=== PATIENT | female | born 1940 | race Caucasian/White ===

== ENCOUNTER 2019-10-26 08:13 | Inpatient (IN) | payer OTHER, SELFPAY ==
[2019-10-26] VITALS (26 sets, daily range): BP systolic 115–138; BP diastolic 47–86; PULSE 72–90; RESP 16–20; TEMP 36.3–37.1; O2SAT 99–100; BMI 33.1
[2019-10-26 08:44] LABS: Basophils Percent Auto 0.7 % (0.2-1.2); Eosinophils Absolute Auto 0.2 K/mm3 (0-0.3); Immature Granulocyte Absolute 0.03 K/mm3 (0.00-0.031); Immature Granulocyte Percent A 0.6 % (0-0.5); Lymphocytes Absolute Auto 0.65 K/mm3 (0.9-3.2); Mean Corpuscular HGB Conc 26.3 g/dl (32-36); Mean Corpuscular Hemoglobin 19.3 pg (26-34); Mean Corpuscular Volume 73.3 fl (80-100); Mean Platelet Volume 10.9 fl (7.4-10.4); Monocytes Absolute Auto 0.5 K/mm3 (0.1-0.6); Monocytes Percent Auto 9.2 % (2.6-8.5); Neutrophils Percent Auto 74.5 % (45.5-73.1); Platelet Count Result 260 k/mm3 (150-375); Red Cell Distribution Width 17.4 % (11.5-14.5); White Blood Count 5.4 K/mm3 (4.5-10.0)
[2019-10-26 08:53] LABS: Hematocrit 19.8 % (37.0-47.0); Hemoglobin 5.2 g/dL (12.0-15.0)
[2019-10-26 08:57] LABS: Blood Urea Nitrogen 23 mg/dL (7-17); Calcium 8.8 mg/dL (8.4-10.2); Carbon Dioxide 28 mmol/L (22-30); Chloride 99 mmol/L (98-107); Estimated CRCL calculation 42 ml/min; Estimated Glomerular Filt Rate 48; Glucose 119 mg/dL (65-105); INR 1.5; Potassium 3.1 mmol/L (3.4-5.0); Prothrombin Time 17.9 Seconds (11.1-14.7); Sodium 135 mmol/L (137-145)
[2019-10-26 08:58] LABS: Partial Thromboplastin Time 35.1 SECONDS (22.3-36.8)
[2019-10-26] MEDS: PANTOPRAZOLE SODIUM IV 40 MG VIAL IV PUSH ×2 (09:25→20:38)
--- NOTE | 2019-10-26 09:45 | ED.RECABL ---
HPI - Recheck/Abnormal Lab/Rx General Chief Complaint: Recheck/Abnormal Lab/Rx Stated Complaint: Needs Blood Transfusion Time Seen by Provider: 10/26/19 08:25 History of Present Illness HPI narrative: Patient is a 79-year-old female who presents the ER with abnormal lab work. Reports outpatient hemoglobin level from yesterday was 4.9 and her doctor wanted her to come to the ER. She reports she has been feeling fatigued and weak more progressively over the last couple months. This patient went to the doctor be evaluated. 1 year ago she had a valve replacement and was placed on Eliquis for A. fib. She has been doing well since then. She reports her stools are slightly off color but not dark black. She has had no diarrhea. No chest pain/syncope. Related Data Home Medications Medication Instructions Recorded Confirmed apixaban [Eliquis] 5 mg PO BID 02/20/19 02/20/19 aspirin 81 mg PO DAILY 02/20/19 02/20/19 calcium polycarbophil 625 mg PO DAILY 02/20/19 02/20/19 cholecalciferol (vitamin D3) 2,000 unit PO DAILY 02/20/19 02/20/19 furosemide 60 mg PO DAILY 02/20/19 02/20/19 levothyroxine 112 mcg PO DAILY 02/20/19 02/20/19 omega 2-bdm-ira-fish oil [[place]-3] 1,200 cap PO DAILY 02/20/19 02/20/19 spironolactone 25 mg PO DAILY 02/20/19 02/20/19 Allergies Allergy/AdvReac Type Severity Reaction Status Date / Time Kfxvqsf-Ibu-Qst Reductase Allergy Intermediate Muscle Pain Verified 10/26/19 08:40 Inhibitor Review of Systems Review of Systems: All systems reviewed & are unremarkable except as noted in HPI and below Constitutional: Constitutional: Denies chills, Reports fatigue, Denies fever(s) and Reports weakness ENT: Denies nasal congestion and Denies sore throat Cardiovascular: Cardiovascular: Denies chest pain, Denies rapid heart rate and Denies radiating jaw, neck or arm pain Respiratory: Respiratory: Denies cough, Reports dyspnea and Denies wheezing Gastrointestinal: Gastrointestinal: Denies abdominal pain, Reports heartburn, Denies diarrhea, Denies nausea and Denies vomiting Neurologic: Denies syncope, Denies focal weakness and Denies numbness PMF Past Medical History Medical History (Updated 10/26/19 @ 09:56 by Hermes Adair MD) Atrial fibrillation Surgical History Surgical History (Updated 10/26/19 @ 09:47 by Hermes Adair MD) Aortic valve replaced Social History Social History (Updated 10/26/19 @ 09:47 by Hermes Adair MD) Smoking status: Never smoker Gender identity (if verbalized by the patient): Female Exam Narrative: Exam Narrative: GENERAL: Well-appearing, well-nourished, and in no acute distress. HEAD: Normocephalic, atraumatic. Eyes: Nadeem, EOMI, pale conjunctiva. CHEST: Clear to auscultation. No respiratory distress. HEART: Regular rate and rhythm. Murmur heard throughout. Normal peripheral pulses. ABDOMEN: Soft, nontender, nondistended, heme positive stool on RONIT without gross blood. EXTREMITIES: Normal range of motion. No edema. SKIN: Warm, dry, no rash. NEURO: Alert and oriented x3. Course Course Emergency Course: Admit to hospitalist, blood to be transfused, will have GI consulted. Clear liquid diet. Vital Signs Vital signs: Vital Signs Temperature 97.4 F L 10/26/19 08:29 Pulse Rate 90 10/26/19 08:29 Respiratory Rate 18 10/26/19 08:29 Blood Pressure 124/86 10/26/19 08:29 Pulse Oximetry 99 10/26/19 08:29 Temperature 97.4 F L 10/26/19 08:29 Pulse Rate 90 10/26/19 08:29 Respiratory Rate 18 10/26/19 08:29 Blood Pressure 124/86 10/26/19 08:29 Pulse Oximetry 99 10/26/19 08:29 MDM - Recheck/Abnormal Lab/Rx Lab Data Result diagrams: 10/26/19 08:34 10/26/19 08:34 Labs: Lab Results 10/26/19 10/26/19 10/26/19 Range/Units 08:34 08:34 08:34 WBC 5.4 (4.5-10.0) K/mm3 RBC 2.70 L (4.2-5.4) M/mm3 Hgb 5.2 L* (12.0-15.0) g/dL Hct 19.8 L* (37.0-47.0) % MCV 73.3 L (80-
[2019-10-26] MEDS: TUBING, BLOOD PLUM PUMP TUBING 1 EACH XX ×2 (10:40→20:38)
--- NOTE | 2019-10-26 11:15 | PC.NURSE ---
This patient, Deysi Keith, was admitted to Medical Room 349-01. Patient/family oriented to hospital policies and general routines including ID bracelet, bed and alarms, visiting hours, pain management, procedures, bathroom and other care routines, personal items, smoking policy, room service/diet, and visiting hours. Valuables list has been completed. Information on how to activate the Rapid Response Team has been discussed. Patient/Family are encouraged to report perceived risks to care and to ask questions if they do not understand what they are told or what they should do.
--- NOTE | 2019-10-26 13:45 | PM.IMHP ---
H&P: HPI History of Present Illness Chief complaint: ?I need a blood transfusion.? Narrative: Deysi Keith is a 79-year-old female with paroxysmal atrial fibrillation on Eliquis, hypothyroidism, hypertension, and valvular heart disease status post bioprosthetic tissue aortic valve replacement with mitral valve repair who presented to the emergency department earlier today with the stated chief complaint of ?I need a blood transfusion.? She reports progressive weakness and fatigue over the last several months and more recently has been getting short of breath with just walking about. She saw her primary care provider yesterday for evaluation, and received a call today that she needed to come to the emergency department as her hemoglobin level was 4.9. With further questioning she does mention that her stools have been a bit darker over the past couple of month, but she has not noted overt blood or black stools. She also reports occasional belching, rare heartburn, and intermittent constipation. She denies nausea, vomiting, hematemesis, and hematochezia. She has no history of peptic ulcers. Review of Systems Review of Systems: Narrative: Twelve systems were reviewed with pertinent positives and negatives as per HPI. No fever, chills, or sweats. She denies recent travel. No sick contacts. No cough, cold or flu symptoms. She had 1 episode of epistaxis a couple of weeks ago but was not significant. No hematuria. No vaginal bleeding. Except as documented, all other systems were reviewed and are negative. [facility] Past Medical History Medical History (Updated 10/26/19 @ 19:02 by Ivone Herr PA-C) Colon polyps Current use of terminal gauger supervisor anticoagulation Essential hypertension Hypothyroidism Paroxysmal atrial fibrillation It sounds is this developed post valve replacement and repair. 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 Status post aortic valve replacement with tissue valve (~09/2018) Family History Family History Mother Anemia Father Congestive heart failure Sibling Hypertension Social History Social History (Updated 10/26/19 @ 13:32 by Ivone Herr PA-C) Social History: Surrogate decision maker: Christopher Keith, . Code status: Full code. Smoking status: Former smoker Alcohol intake: never Substance use: never Substance use type: does not use Additional living arrangements comments: Lives in [place] with her spouse. Gender identity (if verbalized by the patient): Female Spiritual care concerns: No Meds Home Medications and Allergies Home Medications Medication Instructions Recorded Confirmed Type apixaban [Eliquis] 5 mg PO BID 02/20/19 10/26/19 History aspirin 81 mg PO DAILY 02/20/19 10/26/19 History calcium polycarbophil 625 mg PO DAILY 02/20/19 10/26/19 History cholecalciferol (vitamin D3) 2,000 unit PO DAILY 02/20/19 10/26/19 History furosemide 40 mg PO QAM 02/20/19 10/26/19 History levothyroxine 112 mcg PO DAILY 02/20/19 10/26/19 History omega 7-cco-thv-fish oil [[place]-3] 1,200 cap PO DAILY 02/20/19 10/26/19 History spironolactone 25 mg PO DAILY 02/20/19 10/26/19 History Allergies Allergy/AdvReac Type Severity Reaction Status Date / Time Eszksch-Fyp-Jgb Reductase Allergy Intermediate Muscle Pain Verified 10/26/19 08:40 Inhibitor Vital Signs Vital Signs - 24 hr 10/26/19 08:29 10/26/19 10:15 10/26/19 10:32 Temperature 97.4 F L 98.2 F 98.4 F Pulse Rate 90 74 76 Respiratory Rate 18 16 18 Blood Pressure 124/86 1
[2019-10-26 15:21] LABS: Thyroid Stimulating Hormone Reflex 0.477 uIU/mL (0.465-4.68)
--- NOTE | 2019-10-26 18:38 | PC.NURSE ---
Not able to obtain fax number for medical records at primary physician office. Ivone Moon notified and will try to obtain it on monday.
[2019-10-26 19:23] LABS: Hemoglobin 6.5 g/dL (12.0-15.0)
[2019-10-26 19:31] LABS: Alanine Aminotransferase 12 U/L (4-35); Albumin Level 3.7 g/dL (3.5-5.1); Alkaline Phosphatase 99 U/L (38-126); Aspartate Amino Transferase 17 U/L (14-36); Blood Urea Nitrogen 21 mg/dL (7-17); Calcium 8.6 mg/dL (8.4-10.2); Carbon Dioxide 30 mmol/L (22-30); Chloride 100 mmol/L (98-107); Estimated CRCL calculation 45 ml/min; Estimated Glomerular Filt Rate 54; Glucose 102 mg/dL (65-105); Potassium 3.5 mmol/L (3.4-5.0); Sodium 136 mmol/L (137-145)
[2019-10-26] MEDS: SODIUM CHLORIDE 0.9% IV 250 ML 30 ML IV CONT (20:32)
[2019-10-26] MEDS: FUROSEMIDE INJ 40 MG/4 ML VIAL 20 MG IV PUSH (20:35)
[2019-10-26 22:35] LABS: Glucose Point of Care 100 (65-105)
[2019-10-27] VITALS (9 sets, daily range): BP systolic 128–139; BP diastolic 42–59; PULSE 73–85; RESP 16–18; TEMP 36.7–37.3; O2SAT 99–100
[2019-10-27 01:54] LABS: Hematocrit 25.9 % (37.0-47.0); Hemoglobin 7.6 g/dL (12.0-15.0)
[2019-10-27 05:51] LABS: Basophils Percent Auto 0.6 % (0.2-1.2); Eosinophils Absolute Auto 0.2 K/mm3 (0-0.3); Eosinophils Percent Auto 3.7 % (0-4.4); Hematocrit 25.1 % (37.0-47.0); Hemoglobin 7.3 g/dL (12.0-15.0); Immature Granulocyte Absolute 0.02 K/mm3 (0.00-0.031); Immature Granulocyte Percent A 0.3 % (0-0.5); Lymphocytes Absolute Auto 0.82 K/mm3 (0.9-3.2); Mean Corpuscular HGB Conc 29.1 g/dl (32-36); Mean Corpuscular Hemoglobin 21.9 pg (26-34); Mean Corpuscular Volume 75.4 fl (80-100); Monocytes Absolute Auto 0.6 K/mm3 (0.1-0.6); Monocytes Percent Auto 8.7 % (2.6-8.5); Neutrophils Absolute Auto 4.6 K/mm3 (1.3-6.7); Neutrophils Percent Auto 73.7 % (45.5-73.1); Platelet Count Result 210 k/mm3 (150-375); Red Blood Count 3.33 M/mm3 (4.2-5.4); Red Cell Distribution Width 18.6 % (11.5-14.5); White Blood Count 6.3 K/mm3 (4.5-10.0)
[2019-10-27 06:02] LABS: INR 1.4; Prothrombin Time 16.4 Seconds (11.1-14.7)
[2019-10-27 06:03] LABS: Partial Thromboplastin Time 34.3 SECONDS (22.3-36.8)
[2019-10-27 06:06] LABS: Alanine Aminotransferase 11 U/L (4-35); Albumin Level 3.5 g/dL (3.5-5.1); Alkaline Phosphatase 94 U/L (38-126); Aspartate Amino Transferase 14 U/L (14-36); Bilirubin,Total 1.2 mg/dL (0.2-1.3); Blood Urea Nitrogen 17 mg/dL (7-17); Calcium 8.5 mg/dL (8.4-10.2); Carbon Dioxide 28 mmol/L (22-30); Chloride 100 mmol/L (98-107); Estimated CRCL calculation 43 ml/min; Estimated Glomerular Filt Rate 48; Glucose 103 mg/dL (65-105); Magnesium 2.1 mg/dL (1.6-2.3); Phosphorus 3.4 mg/dL (2.5-4.5); Potassium 3.3 mmol/L (3.4-5.0); Sodium 134 mmol/L (137-145)
[2019-10-27 07:15] LABS: Anisocytosis 1+ (NORMAL); Hypochromasia 1+ (NORMAL); Ovalocytes 1+ (NORMAL); Platelet Estimate Adequate (Adequate)
[2019-10-27] MEDS: FUROSEMIDE 40 MG TABLET PO (08:59)
[2019-10-27] MEDS: SPIRONOLACTONE 25 MG TABLET PO (08:59)
[2019-10-27] MEDS: PANTOPRAZOLE SODIUM IV 40 MG VIAL IV PUSH ×2 (08:59→20:21)
[2019-10-27] MEDS: calcium polycarbophiL 625 MG TABLET PO (08:59)
[2019-10-27] MEDS: CHOLECALCIFEROL 1,000 UNIT TABLET 2000 UNITS PO (08:59)
[2019-10-27] MEDS: LEVOTHYROXINE SODIUM 112 MCG TABLET PO (08:59)
[2019-10-27 12:43] LABS: Hematocrit 27.3 % (37.0-47.0); Hemoglobin 7.9 g/dL (12.0-15.0)
--- NOTE | 2019-10-27 13:15 | WPDGICN ---
Assessment and Plan Assessment and plan (1) Profound anemia: Code(s): D64.9 - Anemia, unspecified Status: Acute Assessment and Plan: microcytic anemia in setting of eliquis use she is getting blood transfusion will proceed with egd and colonoscopy to assess source of blood loss keep holding blood thinner and monitor hb (2) Occult GI bleeding: Code(s): R19.5 - Other fecal abnormalities Status: Acute Assessment and Plan: will also get records from recent colonoscopy (3) Current use of half-way anticoagulation: Code(s): Z79.01 - group home (current) use of anticoagulants Status: Acute Assessment and Plan: on hold (4) Paroxysmal atrial fibrillation: Code(s): I48.0 - Paroxysmal atrial fibrillation Status: Acute (5) Essential hypertension: Code(s): I10 - Essential (primary) hypertension Status: Acute GI Consult Note Consult date/time: 10/27/19 13:15 Reason for consult: symptomatic anemia HPI: Deysi Keith is a 79 year old female with paroxysmal atrial fibrillation on Eliquis for almost a year after she underwent heart surgery with bioprosthetic tissue aortic valve replacement with mitral valve repair. She also has history of polyps with colonoscopy 2017, then apparently followed by proctoscopy because polyp . She is here with progressive shortness of breath for 2-3 months but lately even more fatigue and getting easily tired. She was her pcp who check Hb 4.9, she was called with results and admitted to the hospital for further evaluation. Noted slightly dark stools for few weeks but no obvious blood. She never had EGD, denies reflux symptoms or abdominal pain. Review of Systems Constitutional: Constitutional: Reports fatigue, Denies headache(s) and Reports lethargy Eyes: Eyes: Denies blurry vision ENT: Reports Normal hearing present, Denies headache(s) and Denies neck pain Cardiovascular: Cardiovascular: Reports dyspnea and Reports dyspnea on exertion Respiratory: Respiratory: Reports dyspnea on exertion Gastrointestinal: Gastrointestinal: Reports no additional gastrointestinal complaints Genitourinary: Genitourinary: Denies dysuria Musculoskeletal: Musculoskeletal: Denies neck pain Integumentary/Breasts: Skin/Breast: Denies dry skin Neurologic: Reports Normal hearing present, Denies headache(s) and Denies weakness Psychiatric: Psychiatric: Denies anxiety Endocrine: Endocrine: Denies change in body appearance Hematologic/Lymphatic: Hematologic/Lymphatic: Denies lymphadenopathy Allergic/Immunologic: Allergic/Immunologic: Denies urticaria PMF Past Medical History Medical History (Updated 10/26/19 @ 19:02 by Ivone Herr PA-C) Colon polyps Current use of oil heaterman anticoagulation Essential hypertension Hypothyroidism Paroxysmal atrial fibrillation It sounds is this developed post valve replacement and repair. 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 Status post aortic valve replacement with tissue valve (~09/2018) Family History Family History Mother Anemia Father Congestive heart failure Sibling Hypertension Social History Social History (Updated 10/26/19 @ 13:32 by Ivone Herr PA-C) Social History: Surrogate decision maker: Christopher Keith, . Code status: Full code. Smoking status: Former smoker Alcohol intake: never Substance use: never Substance use type: does not use Additional living arrangements comments: Lives in [facility]
--- NOTE | 2019-10-27 14:07 | PM.IMPN ---
Progress Note: A&P Assessment and Plan (1) Profound anemia: Code(s): D64.9 - Anemia, unspecified Status: Acute Assessment and Plan: Presumed to be secondary to occult GI bleed. Hemoglobin 5.2 at presentation. She received 3 units pRBC. H&H is stable now. Continue to monitor H&H q.6h. Transfuse as needed with hemoglobin threshold <7.0 Eliquis has been held. (2) Occult GI bleeding: Code(s): R19.5 - Other fecal abnormalities Status: Acute Assessment and Plan: Stool Hemoccult positive in ED. She notes frequent dark, tarry stools. Dr. Denson has been consulted and his input is appreciated. Continue Protonix given vague GI complaints. Plan for EGD and colonoscopy tomorrow. (3) Paroxysmal atrial fibrillation: Code(s): I48.0 - Paroxysmal atrial fibrillation Status: Acute Assessment and Plan: Rate is controlled at this time. She is currently in sinus rhythm. Apixaban on hold given profound anemia and occult bleeding. Continue to monitor on telemetry (4) Current use of intermission coordinator anticoagulation: Code(s): Z79.01 - adjunct faculty for medical terminology (current) use of anticoagulants Status: Acute Assessment and Plan: As above, apixaban is on hold currently. (5) Hypothyroidism: Code(s): E03.9 - Hypothyroidism, unspecified Status: Acute Assessment and Plan: TSH is within normal limits. Continue levothyroxine (6) Essential hypertension: Code(s): I10 - Essential (primary) hypertension Status: Acute Assessment and Plan: Blood pressures were reviewed and they are well controlled on the low end of normal. Continue antihypertensives and monitor daily. (7) Elevated serum creatinine: Code(s): R79.89 - Other specified abnormal findings of blood chemistry Status: Acute Assessment and Plan: No known history of kidney disease. May be due to hypoperfusion stemming from her profound anemia. Continue to monitor closely. Will call primary tomorrow to establish baseline creatinine. (8) Hypokalemia: Code(s): E87.6 - Hypokalemia Status: Acute Assessment and Plan: She has very mild hypokalemia and is asymptomatic. She is on both furosemide and spironolactone. Magnesium is within normal limits. I am hesitant to give potassium supplement given spironolactone therapy. Will monitor potassium closely for now. Subjective Date/time seen: 10/27/19 14:07 Interval history: Date of service: 10/27/2019 She is doing well at this time. She feels that her shortness of breath has modestly improved, although she notes that she has not been ambulating much and she typically has ORTIZ. She denies any active bleeding or bruising. She has not had a bowel movement in 5 days. She did note that her bowel movements were often dark and tarry. She denies dizziness or lightheadedness. She does feel rather fatigued. She is not in any pain at this time. She denies cough, dysphagia, chest pain, palpitations, nausea, vomiting, fever, chills, abdominal pain, or diarrhea. She is a little bit nervous about having a colonoscopy tomorrow. Review of Systems Review of Systems: Narrative: A 12 point review of systems was reviewed with pertinent positives and negatives as per HPI. Exam Narrative: Exam Narrative: Ms. Keith is examined alone today. She is a well-nourished 79-year-old female who is lying supine in bed. She appears comfortable and is in no acute respiratory distress. HR 78, BP 132/52, RR 16, T 99.2?, 99% on room air Neuro: awake, alert and oriented x4, speech clear, no focal neuro deficits noted HEENMT: normocephalic, atraumatic, EOMI, conjunctival pallor, sclerae anicteric, moist oral mucosa Neck: supple, no lymphadenopathy Respiratory: clear to auscultation bilaterally, normal respiratory effort without accessory muscle use Cardio: regular rate, regular rhythm,
[2019-10-27] MEDS: PEG (High)/E-LYTE SOLN 4,000 ML BTL 4000 ML PO (16:18)
[2019-10-27] MEDS: BISACODYL 5 MG TABLET EC 20 MG PO (16:54)
[2019-10-27 18:33] LABS: Hematocrit 28.7 % (37.0-47.0); Hemoglobin 8.3 g/dL (12.0-15.0)
[2019-10-28] VITALS (15 sets, daily range): BP systolic 88–140; BP diastolic 45–60; PULSE 76–93; RESP 16–22; TEMP 36.2–36.9; O2SAT 99–100
[2019-10-28 01:24] LABS: Hematocrit 29.5 % (37.0-47.0); Hemoglobin 8.6 g/dL (12.0-15.0)
[2019-10-28] MEDS: LEVOTHYROXINE SODIUM 112 MCG TABLET PO (05:32)
[2019-10-28] MEDS: MAGNESIUM CITRATE 300 ML BTL PO (05:32)
[2019-10-28 05:45] LABS: Hematocrit 25.8 % (37.0-47.0); Hemoglobin 7.5 g/dL (12.0-15.0); Mean Corpuscular HGB Conc 29.1 g/dl (32-36); Mean Corpuscular Hemoglobin 21.8 pg (26-34); Mean Platelet Volume 10.2 fl (7.4-10.4); Platelet Count Result 226 k/mm3 (150-375); Red Blood Count 3.44 M/mm3 (4.2-5.4); Red Cell Distribution Width 18.9 % (11.5-14.5)
[2019-10-28 05:58] LABS: Blood Urea Nitrogen 14 mg/dL (7-17); Calcium 8.6 mg/dL (8.4-10.2); Carbon Dioxide 32 mmol/L (22-30); Chloride 98 mmol/L (98-107); Estimated CRCL calculation 47 ml/min; Estimated Glomerular Filt Rate 54; Glucose 99 mg/dL (65-105); Magnesium 2.1 mg/dL (1.6-2.3); Potassium 2.9 mmol/L (3.4-5.0); Sodium 136 mmol/L (137-145)
[2019-10-28] MEDS: PANTOPRAZOLE SODIUM IV 40 MG VIAL IV PUSH (08:44)
--- NOTE | 2019-10-28 12:05 | PC.NURSE ---
To GI Lab via [employer].
[2019-10-28] MEDS: LACTATED RINGERS 1,000 ML 150 ML IV CONT ×2 (12:35→16:01)
[2019-10-28] MEDS: GENTAMICIN 80MG/SOD CHL 50 ML 80 MG/50 ML BAG 100 MG IVPB (12:37)
[2019-10-28] MEDS: AMPICILLIN 2 GM/NS 100 ML 2 GM/100 ML BAG IVPB (13:15)
--- NOTE | 2019-10-28 13:23 | WPDANESEPPF ---
Anes - Initial Pre Proc Eval Procedure: Operation Date: 10/28/19 12:00 Proposed Procedures p Esophagogastroduodenoscopy & Colonoscopy - Larry Denson MD Date/Time: 10/28/19 13:23 Surgeon: Marcie Hinds PA-C Pre Op Diagnosis: ?I need a blood transfusion.? Patient Data Age: 79 Gender: F Height: 5 ft 5 in Weight: 94.8 kg Last Vital Signs Temp 98.2 F 10/28/19 12:18 Pulse 83 10/28/19 12:18 Resp 16 10/28/19 12:18 BP 133/57 L 10/28/19 12:18 Pulse Ox 100 10/28/19 12:18 Allergies Allergy/AdvReac Type Severity Reaction Status Date / Time Nnguzjg-Olz-Uzc Reductase Allergy Intermediate Muscle Pain Verified 10/28/19 12:16 Inhibitor Home Medications Medication Instructions Recorded Confirmed Type apixaban [Eliquis] 5 mg PO BID 02/20/19 10/26/19 History aspirin 81 mg PO DAILY 02/20/19 10/26/19 History calcium polycarbophil 625 mg PO DAILY 02/20/19 10/26/19 History cholecalciferol (vitamin D3) 2,000 unit PO DAILY 02/20/19 10/26/19 History furosemide 40 mg PO QAM 02/20/19 10/26/19 History levothyroxine 112 mcg PO DAILY 02/20/19 10/26/19 History omega 7-ijt-aat-fish oil [[place]-3] 1,200 cap PO DAILY 02/20/19 10/26/19 History spironolactone 25 mg PO DAILY 02/20/19 10/26/19 History Laboratory Tests 10/27/19 10/28/19 10/28/19 18:07 00:48 05:25 WBC 6.0 K/mm3 K/mm3 (4.5-10.0) RBC 3.44 M/mm3 L M/mm3 (4.2-5.4) Hgb 8.3 g/dL L g/dL 8.6 g/dL L g/dL 7.5 g/dL L g/dL (12.0-15.0) (12.0-15.0) (12.0-15.0) Hct 28.7 % L % 29.5 % L % 25.8 % L % (37.0-47.0) (37.0-47.0) (37.0-47.0) MCV 75.0 fl L fl (80-100) MCH 21.8 pg L pg (26-34) MCHC 29.1 g/dl L g/dl (32-36) RDW 18.9 % H % (11.5-14.5) Plt Count 226 k/mm3 k/mm3 (150-375) MPV 10.2 fl fl (7.4-10.4) Sodium Potassium Chloride Carbon Dioxide BUN Creatinine Estim Creat Clear Calc Estimated GFR Glucose Calcium Magnesium 10/28/19 05:25 WBC RBC Hgb Hct MCV MCH MCHC RDW Plt Count MPV Sodium 136 mmol/L L mmol/L (137-145) Potassium 2.9 mmol/L L mmol/L (3.4-5.0) Chloride 98 mmol/L mmol/L (98-107) Carbon Dioxide 32 mmol/L H mmol/L (22-30) BUN 14 mg/dL mg/dL (7-17) Creatinine 1.00 mg/dL mg/dL (0.7-1.0) Estim Creat Clear Calc 47 ml/min ml/min Estimated GFR 54 L (59 - ) Glucose 99 mg/dL mg/dL (65-105) Calcium 8.6 mg/dL mg/dL (8.4-10.2) Magnesium 2.1 mg/dL mg/dL (1.6-2.3) Patient hx anesthesia problems: none Family hx anesthesia problems: none [facility] Past Medical History Medical History (Updated 10/27/19 @ 16:01 by Marcie Hinds PA-C) Colon polyps Current use of longterm anticoagulation Essential hypertension Hypothyroidism Paroxysmal atrial fibrillation It sounds is this developed post valve replacement and repair. 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 Status post aortic valve replacement with tissue valve (~09/2018) Family History Family History Mother Anemia Father Congestive heart failure Sibling Hypertension Social History Social History (Updated 10/26/19 @ 13:32 by Ivone Herr PA-C) Social History: Surrogate decision maker: Christopher Keith, . Code status: Full code. Smoking sta
--- NOTE | 2019-10-28 15:02 | PM.IMPN ---
Progress Note: A&P Assessment and Plan (1) Profound anemia: Qualifiers: Anemia type: iron deficiency Iron deficiency anemia type: unspecified iron deficiency Qualified Code(s): D50.9 - Iron deficiency anemia, unspecified Code(s): D64.9 - Anemia, unspecified Status: Acute Assessment and Plan: Presumed to be secondary to occult GI bleed. Hemoglobin 5.2 at presentation. She received 3 units pRBC on 10/26/2019. H&H is stable now. Continue to monitor H&H closely. Will repeat this evening following colonoscopy and EGD. Transfuse as needed with hemoglobin threshold <7.0 Eliquis has been held. (2) Occult GI bleeding: Code(s): R19.5 - Other fecal abnormalities Status: Acute Assessment and Plan: Stool Hemoccult positive in ED. She notes frequent dark, tarry stools. Dr. Pastor has been consulted and his input is appreciated. She is awaiting EGD and colonoscopy at this time. Will await results and tailor treatment accordingly. Continue Protonix (3) Paroxysmal atrial fibrillation: Code(s): I48.0 - Paroxysmal atrial fibrillation Status: Acute Assessment and Plan: Rate is controlled at this time and she has been in sinus rhythm Apixaban on hold given profound anemia and occult bleeding. Continue to monitor on telemetry (4) Current use of long term care pharmacist anticoagulation: Code(s): Z79.01 - longterm (current) use of anticoagulants Status: Acute Assessment and Plan: As above, apixaban is on hold currently. (5) Hypothyroidism: Qualifiers: Hypothyroidism type: unspecified Qualified Code(s): E03.9 - Hypothyroidism, unspecified Code(s): E03.9 - Hypothyroidism, unspecified Status: Acute Assessment and Plan: TSH is within normal limits. Continue levothyroxine (6) Essential hypertension: Code(s): I10 - Essential (primary) hypertension Status: Acute Assessment and Plan: Blood pressures were reviewed and they are well controlled on the low end of normal. Continue antihypertensives and monitor daily. (7) Elevated serum creatinine: Code(s): R79.89 - Other specified abnormal findings of blood chemistry Status: Acute Assessment and Plan: No known history of kidney disease. May be due to hypoperfusion stemming from her profound anemia. Renal function normal today with creatinine 1.0 and BUN 14. Continue to monitor renal function. (8) Hypokalemia: Code(s): E87.6 - Hypokalemia Status: Acute Assessment and Plan: She has moderate hypokalemia and is asymptomatic. She is on both furosemide and spironolactone and her levels of potassium or fluctuant. Magnesium is within normal limits. Repeat potassium upon return from GI lab and replace as needed, using caution given spironolactone use. Continue to monitor potassium closely. Subjective Date/time seen: 10/28/19 15:02 Interval history: Date of service: 10/28/2019 Ms. Keith is seen today in the endoscopy waiting area while she is awaiting EGD and colonoscopy. She is feeling well at this time. She reports abdominal ?gurgling? which she believes is secondary to the colonoscopy prep. Her shortness of breath has improved greatly. She has not had any episodes of bleeding. Denies dizziness or lightheadedness. No fevers, chills, nausea, vomiting, abdominal pain, palpitations, chest pain, headache, or muscle aches. Review of Systems Review of Systems: Narrative: A 12 point review of systems was reviewed with pertinent positives and negatives as per HPI. Exam Narrative: Exam Narrative: Ms. Keith is examined today in the presence of her . She is a well-nourished 79-year-old female who is lying supine in bed. She appears comfortable and is in no acute respiratory distress. HR 93, BP 122/58, RR 16 him a T 98.0?, 99% on room air Neuro: awake, alert and orient
[2019-10-28] MEDS: BENZOCAINE (*SP) 60 ML SPRAY CAN (HURRICAINE) 1 SPRAY MUCOUS MEM (15:33)
--- NOTE | 2019-10-28 16:25 | PC.NURSE ---
Returned from GI Lab via bed. Family at bedside.
[2019-10-28 16:47] LABS: Hematocrit 26.5 % (37.0-47.0); Hemoglobin 7.6 g/dL (12.0-15.0)
[2019-10-28 16:54] LABS: Potassium 3.2 mmol/L (3.4-5.0)
[2019-10-28] MEDS: POTASSIUM CHLORIDE 20 MEQ TABLET PO (17:20)
[2019-10-29] VITALS (9 sets, daily range): BP systolic 128–131; BP diastolic 44; PULSE 80–90; RESP 16; TEMP 36.8–37.2; O2SAT 97
[2019-10-29 00:24] LABS: Hematocrit 28.5 % (37.0-47.0); Hemoglobin 8.2 g/dL (12.0-15.0)
[2019-10-29 00:39] LABS: Blood Urea Nitrogen 13 mg/dL (7-17); Calcium 9.2 mg/dL (8.4-10.2); Carbon Dioxide 30 mmol/L (22-30); Chloride 99 mmol/L (98-107); Estimated CRCL calculation 47 ml/min; Estimated Glomerular Filt Rate 54; Glucose 127 mg/dL (65-105); Magnesium 2.4 mg/dL (1.6-2.3); Phosphorus 3.6 mg/dL (2.5-4.5); Potassium 3.4 mmol/L (3.4-5.0); Sodium 135 mmol/L (137-145)
[2019-10-29] MEDS: LEVOTHYROXINE SODIUM 112 MCG TABLET PO (05:45)
[2019-10-29 05:58] LABS: Hematocrit 26.6 % (37.0-47.0); Hemoglobin 7.7 g/dL (12.0-15.0); Mean Corpuscular HGB Conc 28.9 g/dl (32-36); Mean Corpuscular Hemoglobin 21.9 pg (26-34); Mean Corpuscular Volume 75.6 fl (80-100); Mean Platelet Volume 10.5 fl (7.4-10.4); Platelet Count Result 225 k/mm3 (150-375); Red Blood Count 3.52 M/mm3 (4.2-5.4); White Blood Count 6.3 K/mm3 (4.5-10.0)
[2019-10-29 06:13] LABS: Blood Urea Nitrogen 12 mg/dL (7-17); Calcium 8.8 mg/dL (8.4-10.2); Carbon Dioxide 30 mmol/L (22-30); Chloride 101 mmol/L (98-107); Estimated CRCL calculation 47 ml/min; Estimated Glomerular Filt Rate 54; Glucose 110 mg/dL (65-105); Potassium 3.6 mmol/L (3.4-5.0); Sodium 137 mmol/L (137-145)
--- NOTE | 2019-10-29 07:34 | WPDANESPN ---
Anes - Prog Note Post-Op Date/Time: 10/29/19 07:34 Cardiovascular status: normal Respiratory status: normal Airway patency: baseline Mental status: baseline Post-Op hydration status: normal Vital Signs: Last Vital Signs Temp 36.8 C 10/29/19 06:00 Pulse 81 10/29/19 06:00 Resp 16 10/29/19 06:00 BP 131/44 L 10/29/19 06:00 Pulse Ox 97 10/29/19 06:00 I/O: Intake & Output 10/28/19 10/28/19 10/29/19 15:59 23:59 07:59 Intake Total 100 1340 750 Output Total 50 200 Balance 100 1290 550 Laboratory Tests 10/29/19 05:51 10/29/19 05:51 10/28/19 10/28/19 10/29/19 16:39 16:39 00:19 WBC RBC Hgb 7.6 L 8.2 L Hct 26.5 L 28.5 L MCV MCH MCHC RDW Plt Count MPV Sodium Potassium 3.2 L Chloride Carbon Dioxide BUN Creatinine Estim Creat Clear Calc Estimated GFR Glucose Calcium Phosphorus Magnesium 10/29/19 10/29/19 10/29/19 00:19 05:51 05:51 WBC 6.3 RBC 3.52 L Hgb 7.7 L Hct 26.6 L MCV 75.6 L MCH 21.9 L MCHC 28.9 L RDW 19.0 H Plt Count 225 MPV 10.5 H Sodium 135 L 137 Potassium 3.4 3.6 Chloride 99 101 Carbon Dioxide 30 30 BUN 13 12 Creatinine 1.00 1.00 Estim Creat Clear Calc 47 47 Estimated GFR 54 L 54 L Glucose 127 H 110 H Calcium 9.2 8.8 Phosphorus 3.6 Magnesium 2.4 H Post-procedural complaints: none Patient Feedback: Patient satisfied with anesthetic care.
[2019-10-29] MEDS: FUROSEMIDE 40 MG TABLET PO (08:54)
[2019-10-29] MEDS: calcium polycarbophiL 625 MG TABLET PO (08:54)
[2019-10-29] MEDS: SPIRONOLACTONE 25 MG TABLET PO (08:54)
[2019-10-29] MEDS: CHOLECALCIFEROL 1,000 UNIT TABLET 2000 UNITS PO (08:54)
[2019-10-29 08:55] LABS: Iron 19 ug/dL (37-170)
[2019-10-29] MEDS: PANTOPRAZOLE 40 MG TABLET PO (08:55)
[2019-10-29 09:03] LABS: Transferrin 313 mg/dL (206-381)
[2019-10-29 09:08] LABS: Percent Iron Saturation 5 % (20-50)
[2019-10-29] MEDS: POTASSIUM CHLORIDE 20 MEQ TABLET 40 MEQ PO (14:51)
[2019-10-29] MEDS: CYANOCOBALAMIN INJ 1,000 MCG/ML VIAL 1000 MCG IM (14:53)
--- NOTE | 2019-10-29 17:03 | WPDGIPROGNO ---
Progress Note: A&P Assessment and Plan (1) Profound anemia: Qualifiers: Anemia type: iron deficiency Iron deficiency anemia type: unspecified iron deficiency Qualified Code(s): D50.9 - Iron deficiency anemia, unspecified Code(s): D64.9 - Anemia, unspecified Status: Acute Assessment and Plan: egd showed medellin's esophagus but nothing to explain anemia, same with colonoscopy only polyps will arrange for SB capsule endoscopy as outpatient to assess if GI blood loss no contraindications by gi standpoint to discharge (2) Current use of terminologist anticoagulation: Code(s): Z79.01 - MCFP (current) use of anticoagulants Status: Acute Assessment and Plan: eliquis on hold, primary will use baby aspirin instead (3) Paroxysmal atrial fibrillation: Code(s): I48.0 - Paroxysmal atrial fibrillation Status: Acute (4) Essential hypertension: Code(s): I10 - Essential (primary) hypertension Status: Acute (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 Status: Acute Assessment and Plan: egd in 1 year for surveillance and use ppi daily Subjective Date/time seen: 10/29/19 17:03 Interval history: she is getting iv iron, doing ok Review of Systems Review of Systems: All systems reviewed & are unremarkable except as noted in HPI and below Exam Const: General: comfortable and no acute distress HENMT: General nose exam: Normal nares present Eyes: General: appearance normal, both eyes and all related structures Neck: Neck: no JVD Resp: Auscultation: clear to auscultation bilaterally Cardio: Rate: regular rate Rhythm: regular rhythm GI: Inspection: non-distended GI Palp: Yes Soft to palpation Auscultation: normal bowel sounds Skin: General skin exam: pallor Neuro: Speech: normal speech Motor exam (neuro): Normal motor muscle tone present throughout Extrem: General: normal to inspection Psych: Mental Status: mental status grossly normal Objective Data Vital Signs Vital Signs: Vital Signs - 24 hr 10/28/19 17:16 10/28/19 18:09 10/28/19 20:00 Temperature 97.3 F L 97.5 F L Pulse Rate 77 78 81 Respiratory Rate 16 16 Blood Pressure 139/50 L 127/58 L Pulse Oximetry 100 100 10/28/19 23:06 10/29/19 00:00 10/29/19 04:00 Temperature 98.4 F Pulse Rate 81 87 84 Respiratory Rate 16 Blood Pressure 127/45 L Pulse Oximetry 99 10/29/19 06:00 10/29/19 07:43 10/29/19 08:00 Temperature 98.3 F Pulse Rate 81 81 85 Respiratory Rate 16 16 Blood Pressure 131/44 L Pulse Oximetry 97 97 10/29/19 09:07 10/29/19 12:00 10/29/19 14:36 Temperature 98.9 F Pulse Rate 83 90 Respiratory Rate Blood Pressure 128/44 L Pulse Oximetry Intake/Output Intake/Output: Intake & Output 10/26/19 10/27/19 10/28/19 10/29/19 23:59 23:59 23:59 23:59 Intake Total 2258 1710 1680 1710 Output Total 0 2930 250 200 Balance 2258 -1220 1430 1510 Meds/Results Medications: Active Medications Generic Name Dose Route Start Last Admin Trade Name Freq PRN Reason Stop Dose Admin Calcium Polycarbophil 625 mg 10/27/19 09:00 10/29/19 08:54 Fiber Con PO 625 mg DAILY TAMERA Administration Furosemide 40 mg 10/27/19 09:00 10/29/19 08:54 Lasix Tablet PO 40 mg QAM TAMERA Administration Levothyroxine Sodium 112 mcg 10/27/19 09:00 10/29/19 05:45 Synthroid PO 112 mcg DAILY@0630 TAMERA Administration Lidocaine HCl 0.3 ml 10/28/19 09:46 Xylocaine 2% Local Inj INTRADERM ONCE PRN to numb area Ondansetron HCl 4 mg 10/26/19 09:54 Zofran Inj IV PUSH Q4H PRN Nausea Pantoprazole Sodium 40 mg 10/29/19 09:00 10/29/19 08:55 Protonix PO 40 mg QAM TAMERA Administration Spironolactone 25 mg 10/27/19 09:00 10/29/19 08:54 Aldactone PO 25 mg DAILY TAMERA Administration Vitamin D 2,000 unit 10/27/19 09:00 10/29/19 08:54
--- NOTE | 2019-10-29 17:16 | PM.DS ---
DS: Admitting Diagnosis Admitting Diagnosis Admitting Diagnosis: Anemia, unspecified DS: Discharge Diagnosis Discharge Diagnosis (1) Profound anemia: Qualifiers: Anemia type: iron deficiency Iron deficiency anemia type: unspecified iron deficiency Qualified Code(s): D50.9 - Iron deficiency anemia, unspecified Code(s): D64.9 - Anemia, unspecified Status: Acute (2) Occult GI bleeding: Code(s): R19.5 - Other fecal abnormalities Status: Acute (3) Paroxysmal atrial fibrillation: Code(s): I48.0 - Paroxysmal atrial fibrillation Status: Acute (4) Current use of usp anticoagulation: Code(s): Z79.01 - ferry terminal supervisor (current) use of anticoagulants Status: Acute (5) Hypothyroidism: Qualifiers: Hypothyroidism type: unspecified Qualified Code(s): E03.9 - Hypothyroidism, unspecified Code(s): E03.9 - Hypothyroidism, unspecified Status: Acute (6) Essential hypertension: Code(s): I10 - Essential (primary) hypertension Status: Acute (7) Elevated serum creatinine: Code(s): R79.89 - Other specified abnormal findings of blood chemistry Status: Acute (8) Hypokalemia: Code(s): E87.6 - Hypokalemia Status: Acute DS: Summary Hospital Course Reason for hospitalization: Abnormal labs - anemia Hospital Course: Mrs. Keith is a 79 y.o. female with PMH significant for atrial fibrillation on eliquis, hypothyroidism, hypertension, and valvular heart disease s/p bioprosthetic tissue aortic valve replacement with mitral valve repair who presented to the ED due to abnormal labs showing profound anemia. She reported progressive weakness, fatigue, and dyspnea on exertion. Her hemoglobin was idenified to be 4.9 on outpatient labs. She reported dark stools over the past few months without any overt melena or hematochezia. Hb at presentation was 5.2. She was given 3 units pRBC. She was admitted to the hospitalist service and GI was consulted. She was started on PPI therapy. Eliquis was held given profound anemia and suspected occult bleeding. Cr was elevated at 1.1 and BUN 23. Potassium was low at 3.1. Anemia was microcytic. She underwent EGD and colonoscopy. 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 Biopsies were obtained. Colonoscopy was performed and revealed a few 3mm polyps in the ascending colon, a single 6mm polyp in the descending colon, and no other evidence of bleeding. Biopsies were obtained from a scarred area. There was a single small-sized internal hemorrhoid in the rectum without evidence of active bleeding. She was continued on PPI therapy due to concern for Ramos's. GI recommended small bowel capsule endoscopy for further assessment of GI blood loss. She was cleared from a GI standpoint for discharge. She had a 17 beat run of non-sustained ventricular tachycardia on telemetry the night of 10/28/19 in the setting of hypokalemia. Potassium was replaced and she was prescribed a short duration of PO potassium at discharge with instructions to have a repeat CMP in 3 days and further follow-up per PCP if additional potassium was required. I called her organ builder, Dr. Barragan, to discuss her profound anemia requiring blood transfusion in the setting of atrial fibrillation/anticoagulation as well as NSVT. He recommended a cardiac event monitor which he would have mailed to her home so that the results would go to his office. He will see her within 1-2 weeks to discuss eliquis therapy after repeat CBC. She was given iron supplementation. She understood the discharge plan. All additional questions were answered. She was discharged in stable condition on the evening of 10/29/19. Status at Discharge Functional status at discharge: independent ambulation Overall status at discharge: patient is back to baseline Time Spent with Patient Time attestation: Total time spent providing and/or coordinating discharge service
== END 2019-10-29 17:50 | disposition home or self-care (01) | DRG 812 ==
LOC: ANHED 09:56 → ANH3MED 10:29
PROVIDERS: Internal Medicine Gastroenterology; Physician Assistant; Admitting Provider Internal Medicine; Emergency Provider Emergency Medicine; PCP Physician Assistant; Visit Provider Physician Assistant
PROC: 0DJ08ZZ Inspection of Upper Intestinal Tract, Via Natural or Artificial Opening Endoscopic (ICD-10-PCS; CPT 43235; principal; 2019-10-28 12:00)
DX: D50.9 Iron deficiency anemia, unspecified (principal); R19.5 Other fecal abnormalities; K22.70 Barrett's esophagus without dysplasia; K63.5 Polyp of colon; K63.89 Other specified diseases of intestine; K64.8 Other hemorrhoids; K46.9 Unspecified abdominal hernia without obstruction or gangrene; I48.0 Paroxysmal atrial fibrillation; E03.9 Hypothyroidism, unspecified; I10 Essential (primary) hypertension; R79.89 Other specified abnormal findings of blood chemistry; E87.6 Hypokalemia; E66.9 Obesity, unspecified; Z68.34 Body mass index [BMI] 34.0-34.9, adult; Z95.2 Presence of prosthetic heart valve; Z90.49 Acquired absence of other specified parts of digestive tract; Z87.891 Personal history of nicotine dependence; Z79.01 Long term (current) use of anticoagulants; Z79.82 Long term (current) use of aspirin
CPT/HCPCS: 36415; 36430; 80048; 80053; 80076; 82607; 82728; 82746; 83540; 83550; 83735; 84100; 84132; 84443; 84466; 85014; 85018; 85025; 85027; 85610; 85730; 86850; 86900; 86901; 86923; 88305; 96374; 99285; A9270; C9113; G0378; J0290; J1580; J1756; J1940; J2704; J3420; J7050; J7120; P9016

== ENCOUNTER 2019-11-15 06:06 | Outpatient (CLI) | payer OTHER, SELFPAY ==
--- NOTE | 2019-11-15 06:40 | SUR.OPER ---
Patient brought to GI Lab. Instructions for patient undergoing Capsule Endoscopy reviewed with patient. Consent form signed. Sensor array applied to patient's abdomen and connected to recorded. Patient swallowed capsule with 12 ozs of water infused with Simethicone. Patient instructed they may have clear liquids at 0820 this AM and eat or drink at 1020 this AM. Patient instructed to return to GI Lab at 1500 this afternoon for removal of recording device and to call [phone] or to return to the hospital if any nausea and vomiting or abdominal pain is experienced. DEREK BERMAN
--- NOTE | 2019-11-15 15:07 | SUR.OPER ---
Patient returned to the GI Lab at 1500 for recorder box removal. Patient voiced no complaints. States they have understanding of instructions. Patient left ambulatory. GRAY
== END 2019-11-15 06:07 | disposition home or self-care (01) ==
LOC: ANHENDO 06:08
PROVIDERS: PCP Physician Assistant; Visit Provider Internal Medicine Gastroenterology
PROC: 0DJ07ZZ Inspection of Upper Intestinal Tract, Via Natural or Artificial Opening (ICD-10-PCS; CPT 91110; principal; 2019-11-15 07:00)
DX: Z01.818 Encounter for other preprocedural examination (principal)
CPT/HCPCS: 91110

== ENCOUNTER 2022-12-06 03:37 | Day surgery (SDC) | payer OTHER, SELFPAY ==
[2022-12-05 13:00] VITALS: BMI 37.8
[2022-12-06 09:14] VITALS: BMI 37.6
[2022-12-06 09:18] VITALS: BP 154/62; PULSE 73; RESP 13; TEMP 36.7; O2SAT 98
--- NOTE | 2022-12-06 09:54 | SUR.PREOP ---
Dr. Garcia to bedside to speak with Pt.
--- NOTE | 2022-12-06 10:01 | PM.IMHP ---
H&P: HPI History of Present Illness Date/Time: 12/06/22 10:01 Chief Complaint: H/O a fib, here for loop implant Narrative: Deysi Pryor is an 82-year-old female followed by Dr. Arenas who is here for loop implant. The patient has a history bioprosthetic mitral valve replacement and tricuspid valve annuloplasty and Maze procedure by Dr. Navarrete on 09/20/2018. Her Eliquis was discontinued previously because of a significant bleed. She has episodes ORTIZ and exertional intolerance, but no palpitations or chest discomfort. There is a question as to whether not she is having any residual paroxysmal atrial fibrillation and loop recorder has been recommended by Dr. Arenas for follow-up. The patient is feeling well today, NPO. Review of Systems Constitutional: Constitutional: Denies fever(s) Eyes: Eyes: Reports no additional eye complaints Cardiovascular: Cardiovascular: Denies chest pain, Reports pedal edema (Occasional), Denies lightheadedness and Reports dyspnea Respiratory: Respiratory: Denies chest congestion, Reports dyspnea and Reports dyspnea on exertion Gastrointestinal: Gastrointestinal: Denies abdominal pain and Denies hematochezia Musculoskeletal: Musculoskeletal: Reports no additional musculoskeletal complaints Integumentary/Breasts: Skin/Breast: Reports system reviewed and no additional complaints, except as docu Neurologic: Reports system reviewed and no additional complaints, except as documented and Denies behavioral changes Psychiatric: Psychiatric: Denies behavioral changes [facility] Past Medical History Medical History (Updated 12/06/22 @ 10:09 by María Garcia MD) Ramos esophagus Colon polyps Current use of nursing home anticoagulation Essential hypertension Hypothyroidism Paroxysmal atrial fibrillation s/p MAZE procedure 09/2018 Valvular heart disease 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 Surgical History Surgical History (Updated 12/06/22 @ 10:09 by María Garcia MD) H/O mitral valve replacement Bioprosthetic MV replacement and TV valve repair, with ALEXANDRA, Dr. 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 S/P Maze operation for atrial fibrillation Status post aortic valve replacement with tissue valve (~09/2018) Family History Family History Mother Anemia Father Congestive heart failure Sibling Hypertension Social History Social History (Updated 12/06/22 @ 10:09 by María Garcia MD) Social History: Christopher Keith, . 2020. Code status: Full code. Smoking status: Former smoker Tobacco type: cigarettes Second hand tobacco smoke exposure: No Smoking end date: 09/19/00 Alcohol intake: never Substance use: never Substance use type: does not use Living arrangements: alone Additional living arrangements comments: Lives in [place] with her spouse. Gender identity (if verbalized by the patient): Female Spiritual care concerns: No Meds Home Medications and Allergies Home Medications Medication Instructions Recorded Confirmed Type aspirin 81 mg tablet,delayed 81 mg PO DAILY 02/20/19 12/06/22 History release cholecalciferol (vitamin D3) 50 2,000 unit PO DAILY 02/20/19 12/06/22 History mcg (2,000 unit) tablet furosemide 40 mg tablet 20 mg PO QAM 02/20/19 12/05/22 History omega 3 350 mg-dha 235 mg-epa 90 1,200 cap PO DAILY 02/20/19 12/06/22 History mg-fish oil 597 mg capsule,delay rel ([place]-3) spironolactone 25 mg tablet 25 mg PO DAILY 02/20/19 12/06/22 History allopurinol 100 mg tablet 100 mg PO DAILY 12/05/22 12/06/22 History atorvastatin 10 mg tablet 10 mg PO DAILY 12/05/22 12/06/22 History clobetasol 0.05 % topical c
--- NOTE | 2022-12-06 10:13 | WPDMODSED ---
Moderate Sedation Note-Pt Data Patient Data Diagnosis: History of paroxysmal AFib, unable to be anticoagulated due to bleeding. Patient is here for loop implant. History of bioprosthetic mitral valve replacement and tricuspid valve repair with Maze procedure in 2019. Present Complaint: ORTIZ, exertional intolerance Procedure to be performed/Plan: Implantation of a loop recorder under local anesthesia, possible sedation if needed. Allergies Allergy/AdvReac Type Severity Reaction Status Date / Time alendronate sodium AdvReac Unknown Verified 12/06/22 09:45 lisinopril AdvReac Unknown Verified 12/06/22 09:45 raloxifene AdvReac Unknown Verified 12/06/22 09:45 Hyqmpys-YMZ-EfS Reductase AdvReac Unknown Verified 12/06/22 09:45 Inhibitor Home Medications Medication Instructions Recorded Confirmed Type aspirin 81 mg tablet,delayed 81 mg PO DAILY 02/20/19 12/06/22 History release cholecalciferol (vitamin D3) 50 2,000 unit PO DAILY 02/20/19 12/06/22 History mcg (2,000 unit) tablet furosemide 40 mg tablet 20 mg PO QAM 02/20/19 12/05/22 History omega 3 350 mg-dha 235 mg-epa 90 1,200 cap PO DAILY 02/20/19 12/06/22 History mg-fish oil 597 mg capsule,delay rel ([place]-3) spironolactone 25 mg tablet 25 mg PO DAILY 02/20/19 12/06/22 History allopurinol 100 mg tablet 100 mg PO DAILY 12/05/22 12/06/22 History atorvastatin 10 mg tablet 10 mg PO DAILY 12/05/22 12/06/22 History clobetasol 0.05 % topical cream 1 applic topical DAILY 12/05/22 12/06/22 History coenzyme Q10 100 mg tablet 100 mg PO DAILY 12/05/22 12/06/22 History ketoconazole 2 % topical cream 1 applic topical DAILY 12/05/22 12/06/22 History levothyroxine 100 mcg tablet 100 mcg PO DAILY 12/05/22 12/06/22 History losartan 50 mg tablet 50 mg PO DAILY 12/05/22 12/06/22 History tretinoin 0.05 % topical cream 1 applic topical DAILY 12/05/22 12/06/22 History triamcinolone acetonide 0.1 % 1 applic topical DAILY 12/05/22 12/06/22 History topical cream Sedation/Anesthesia: No previous sedation/anesthesia problems (including family history). 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 Surgical History Surgical History (Updated 12/06/22 @ 10:09 by María Garcia MD) H/O mitral valve replacement Bioprosthetic MV replacement and TV valve repair, with MAZE, Dr. 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 S/P Maze operation for atrial fibrillation Status post aortic valve replacement with tissue valve (~09/2018) Family History Family History Mother Anemia Father Congestive heart failure Sibling Hypertension Social History Social History (Updated 12/06/22 @ 10:09 by María Garcia MD) Social History: Christopher Keith, . 2020. Code status: Full code. Smoking status: Former smoker Tobacco type: cigarettes Second hand tobacco smoke exposure: No Smoking end date: 09/19/00 Alcohol intake: never Substance use: never Substance use type: does not use Living arrangements: alone Additional living arrangements comments: Lives in [place] with her spouse. Gender identity (if verbalized by the patient): Female Spiritual care concerns: No Mod Sed Physical Exam Physical Exam Pre Procedural Exam: Normal: Appearance, Eyes, Ears, Nose, Neck, Throat, Airway, Lungs, Heart Size, Heart Rate, Heart Rhythm, Neuro Exam, Abdomen, Extremities and Skin (Left par
--- NOTE | 2022-12-06 10:24 | SUR.PREOP ---
Christiano from [employer] here.
[2022-12-06 10:44] VITALS: BP 170/75; PULSE 83; RESP 18; O2SAT 98
[2022-12-06 10:50] VITALS: BP 169/65; PULSE 83; RESP 17; O2SAT 100
[2022-12-06 10:55] VITALS: BP 166/65; PULSE 76; RESP 13; O2SAT 100
[2022-12-06 11:00] VITALS: BP 150/58; PULSE 75; RESP 18; O2SAT 100
--- NOTE | 2022-12-06 11:01 | PM.OP ---
Procedure Note - Brief Procedure Note - Brief Date of procedure: 12/06/22 Atrial Fib Post-op diagnosis: Other (Status post [employer] recorder implant) Procedure performed: Loop recorder implant Surgeon: María Garcia MD Description of procedure: Uneventful implant of a [employer] loop recorder under local anesthesia Complications: No immediate complications Condition: Stable Disposition: Observation
--- NOTE | 2022-12-06 11:02 | P.OP_ITS ---
Procedure Note - Detailed Date of Procedure 12/06/22 Pre-op Diagnosis Atrial Fib Post-op Diagnosis Other (Status post [employer] recorder) Procedure Performed Status post implant of a [employer] loop recorder under local anesthesia Surgeon María Garcia MD Anesthesia Local Indications Deysi Pryor is an 82-year-old female followed by Dr. Arenas who is here for loop implant.? The patient has a history bioprosthetic mitral valve replacement and tricuspid valve annuloplasty and Maze procedure by Dr. Navarrete on 09/20/2018.? Her Eliquis was discontinued previously because of a significant bleed.? She has episodes ORTIZ and exertional intolerance, but no palpitations or chest discomfort.? There is a question as to whether not she is having any residual paroxysmal atrial fibrillation and loop recorder has been recommended by Dr. Arenas for follow-up. Description of Procedure After informed consent, the patient's left parasternal area was prepped and draped in usual fashion. She received 1% lidocaine over the 3rd-4th intercostal space and a [employer] LINQ loop recorder was inserted in the standard fashion. Hemostasis is was obtained with local pressure. The incision was closed with 2- 0 Vicryl and Dermabond, and dressed with a clean large Band-Aid. She tolerated the procedure well with no complications. The device was interrogated and R- wave sensing was found to be good, 0.24 mV. Follow-up: The patient is given information about remote monitoring, will follow-up in our office in 1 week for an incision check Implants [employer] [id number], serial [id number] Estimated Blood Loss 1 (cc) Complications No immediate complications Condition Stable Disposition Observation
[2022-12-06 11:05] VITALS: BP 160/70; PULSE 72; RESP 16; O2SAT 100
== END 2022-12-06 11:30 | disposition home or self-care (01) ==
PROVIDERS: PCP Physician Assistant; Visit Provider Internal Medicine Cardiovascular Disease
PROC: (CPT 33285; principal; 2022-12-06 10:00)
DX: I48.0 Paroxysmal atrial fibrillation (principal); Z95.2 Presence of prosthetic heart valve; I10 Essential (primary) hypertension; Z87.891 Personal history of nicotine dependence; Z79.82 Long term (current) use of aspirin
CPT/HCPCS: 33285; C1764

== ENCOUNTER → 2024-09-10 09:52 | Outpatient (CLI) | payer OTHER, SELFPAY ==
--- NOTE | ~2024-09-10 | XR_ITS ---
XR chest 2V 09/10/2024 10:06 Indication: Leg edema for one week Procedure: 2 view chest Comparison: 2 view chest Findings: Status post median sternotomy for CABG. There is a prosthetic heart valve. Borderline heart size. There is diffuse bilateral interstitial infiltrates. No significant effusion or pneumothorax. Impression: 1: Diffuse bilateral interstitial infiltrates which may represent edema or pneumonia. Reviewed, dictated and finalized at location A. Impression: 1: Diffuse bilateral interstitial infiltrates which may represent edema or pneu monia.
== END ==
LOC: EXPCRAD 09:55
PROVIDERS: PCP Physician Assistant; Visit Provider Physician Assistant
DX: R60.0 Localized edema (principal); R91.8 Other nonspecific abnormal finding of lung field
CPT/HCPCS: 71046